=== PATIENT | male | born 1945 | race Asian ===

== ENCOUNTER → 2023-12-26 | Outpatient (CLI) | payer OTHER, SELFPAY ==
[2023-12-26 11:07] LABS: Collection Type, Urine Clean Catch; Squamous Epithelial Cell,Urine 0 /hpf (0-5)
[2023-12-26 11:33] LABS: Basophils # (Auto) 0.1 Thou/mm3 (0.0-0.2); Basophils % (Auto) 1 % (0-2.5); Eosinophils # (Auto) 0.3 Thou/mm3 (0.0-0.5); Eosinophils % (Auto) 4 % (0-10); Hematocrit 38.8 % (41.0-53.0); Hemoglobin 13.1 g/dL (13.5-16.0); Immature Granulocytes % (Auto) 0 % (0-0); Immature Granulocytes Auto 0.01 Thou/mm3 (0.00-0.00); Lymphocytes # (Auto) 1.8 Thou/mm3 (1.0-4.8); Lymphocytes % (Auto) 30 % (10-50); Mean Corpuscular HGB Conc 33.8 g/dl (31.0-37.0); Mean Corpuscular Hemoglobin 31.7 pg (25.0-35.0); Mean Corpuscular Volume 94 fL (80-100); Monocytes # (Auto) 0.5 Thou/mm3 (0.0-0.8); Monocytes % (Auto) 8 % (0-12); Neutrophils # (Auto) 3.3 Thou/mm3 (1.8-7.7); Neutrophils % (Auto) 56 % (37-80); Nucleated Red Blood Cell % 0 /100 WBC (0); Platelet Count 251 Thou/mm3 (140-440); RDW Standard Deviation 43.9 fL (35.1-43.9); Red Blood Count 4.13 Miln/mm3 (4.50-5.90); White Blood Count 5.8 Thou/mm3 (3.8-10.6)
[2023-12-26 11:40] LABS: Bilirubin,Urine Negative (Negative); Blood,Urine Negative (Negative); Clarity,Urine Clear (Clear/Hazy); Color,Urine Yellow (Lt Yel-Yel); Glucose, Urine Negative (Negative); Ketones,Urine Negative (Negative); Leukocyte Esterase,Urine Negative (Negative); Nitrite,Urine Negative (Negative); Protein,Urine Trace (Neg - Trace); RBC,Urine 2 /hpf (0-3); Urobilinogen,Urine Negative mg/dL (0.0-1.0); WBC,Urine 1 /hpf (0-5)
[2023-12-26 11:43] LABS: Creatinine MALB Rnd Ur 157 mg/dL (30-125); Microalbumin Creat Ratio 2 mg/gCrea (<30); Microalbumin, Random Urine 3 mg/L (0-300)
[2023-12-26 11:43] LABS: Glucose Estimated Average 134 mg/dL (80-131); Hemoglobin A1C 6.3 % Hgb (4.8-6.0)
[2023-12-26 11:49] LABS: Alanine Aminotransferase 24 U/L (10-49); Albumin, Serum 4.6 gm/dL (3.4-4.8); Albumin/Globulin Ratio 1.6 (1.2-2.2); Alkaline Phosphatase 66 U/L (46-116); Anion Gap 4 (7-16); Aspartate Amino Transferase 28 U/L (0-34); BUN/Creatinine Ratio 16 Ratio (12-20); Bilirubin,Total 1.2 mg/dL (0.3-1.2); Blood Urea Nitrogen 18 mg/dL (9-23); Carbon Dioxide 28.2 mMol/L (20.0-31.0); Cardiac Risk Estimate 2.3 RATIO (4.0-6.7); Chloride 106 mMol/L (98-107); Cholesterol 118 mg/dL (132-200); Creatinine (Component) 1.1 mg/dL (0.6-1.3); Globulin 2.9 gm/dL (2.3-3.5); Glucose 127 mg/dL (74-106); HDL Cholesterol 52 mg/dL (40-60); LDL Cholesterol,Calculated 54 mg/dL (0-130); Osmolality,Calculated 279 (275-295); Potassium 4.2 mMol/L (3.4-5.1); Sodium 138 mMol/L (136-145); Total Protein 7.5 gm/dL (5.7-8.2); Triglycerides 59 mg/dL (30-150); eGFR > 60 See Note
== END | disposition home or self-care (01) ==
LOC: COPL 10:19
PROVIDERS: PCP Family Medicine; Referring Provider Family Medicine; Visit Provider Family Medicine
DX: Z00.00 Encounter for general adult medical examination without abnormal findings (principal); I10 Essential (primary) hypertension; E78.2 Mixed hyperlipidemia; E79.0 Hyperuricemia without signs of inflammatory arthritis and tophaceous disease
CPT/HCPCS: 36415; 80053; 80061; 81001; 82043; 82570; 83036; 84443; 85025

== ENCOUNTER → 2024-06-23 | Outpatient (CLI) | payer OTHER, SELFPAY ==
[2024-06-23 12:52] LABS: Collection Type, Urine Clean Catch; Squamous Epithelial Cell,Urine 0 /hpf (0-5)
[2024-06-23 13:17] LABS: Basophils # (Auto) 0.1 Thou/mm3 (0.0-0.2); Basophils % (Auto) 1 % (0-2.5); Eosinophils # (Auto) 0.4 Thou/mm3 (0.0-0.5); Eosinophils % (Auto) 6 % (0-10); Hematocrit 37.8 % (41.0-53.0); Immature Granulocytes % (Auto) 0 % (0-0); Immature Granulocytes Auto 0.01 Thou/mm3 (0.00-0.00); Lymphocytes % (Auto) 31 % (10-50); Mean Corpuscular HGB Conc 34.4 g/dl (31.0-37.0); Mean Corpuscular Hemoglobin 32.6 pg (25.0-35.0); Mean Corpuscular Volume 95 fL (80-100); Monocytes # (Auto) 0.6 Thou/mm3 (0.0-0.8); Monocytes % (Auto) 8 % (0-12); Neutrophils # (Auto) 3.6 Thou/mm3 (1.8-7.7); Neutrophils % (Auto) 54 % (37-80); Nucleated Red Blood Cell % 0 /100 WBC (0); Platelet Count 220 Thou/mm3 (140-440); RDW Standard Deviation 45.2 fL (35.1-43.9); Red Blood Count 3.99 Miln/mm3 (4.50-5.90); White Blood Count 6.7 Thou/mm3 (3.8-10.6)
[2024-06-23 13:19] LABS: Bilirubin,Urine Negative (Negative); Blood,Urine Negative (Negative); Clarity,Urine Clear (Clear/Hazy); Color,Urine Lt-Yellow (Lt Yel-Yel); Glucose, Urine Negative (Negative); Ketones,Urine Negative (Negative); Leukocyte Esterase,Urine Negative (Negative); Nitrite,Urine Negative (Negative); Protein,Urine Negative (Neg - Trace); RBC,Urine < 1 /hpf (0-3); Specific Gravity,Urine 1.014 (1.001-1.035); Urobilinogen,Urine Negative mg/dL (0.0-1.0); WBC,Urine 1 /hpf (0-5)
[2024-06-23 13:27] LABS: Alanine Aminotransferase 18 U/L (10-49); Albumin, Serum 4.6 gm/dL (3.4-4.8); Albumin/Globulin Ratio 1.5 (1.2-2.2); Alkaline Phosphatase 59 U/L (46-116); Anion Gap 5 (7-16); Aspartate Amino Transferase 24 U/L (0-34); BUN/Creatinine Ratio 19 Ratio (12-20); Bilirubin,Total 1.2 mg/dL (0.3-1.2); Blood Urea Nitrogen 19 mg/dL (9-23); Calcium 9.7 mg/dL (8.3-10.6); Calcium (Corrected) 9.7 mg/dL (8.5-10.1); Carbon Dioxide 26.9 mMol/L (20.0-31.0); Chloride 105 mMol/L (98-107); Globulin 3.1 gm/dL (2.3-3.5); Glucose 134 mg/dL (74-106); Osmolality,Calculated 278 (275-295); Potassium 3.9 mMol/L (3.4-5.1); Sodium 137 mMol/L (136-145); Thyroid Stimulating Hormone 3.87 uIU/mL (0.55-4.78); Total Protein 7.7 gm/dL (5.7-8.2); eGFR > 60 See Note
[2024-06-23 13:49] LABS: Creatinine MALB Rnd Ur 59 mg/dL (30-125); Microalbumin, Random Urine < 3 mg/L (0-300)
[2024-06-23 15:56] LABS: Glucose Estimated Average 143 mg/dL (80-131); Hemoglobin A1C 6.6 % Hgb (4.8-6.0)
[2024-06-23 16:16] LABS: Cardiac Risk Estimate 2.2 RATIO (4.0-6.7); Cholesterol 112 mg/dL (132-200); HDL Cholesterol 51 mg/dL (40-60); LDL Cholesterol,Calculated 46 mg/dL (0-130); Triglycerides 75 mg/dL (30-150)
== END | disposition home or self-care (01) ==
LOC: COPL 12:04
PROVIDERS: PCP Family Medicine; Referring Provider Family Medicine; Visit Provider Family Medicine
DX: Z00.00 Encounter for general adult medical examination without abnormal findings (principal); E11.42 Type 2 diabetes mellitus with diabetic polyneuropathy; E78.2 Mixed hyperlipidemia; I10 Essential (primary) hypertension
CPT/HCPCS: 36415; 80053; 80061; 81001; 82043; 82570; 83036; 84443; 85025

== ENCOUNTER 2024-11-27 18:00 | Emergency (ER) | payer OTHER, SELFPAY ==
[2024-11-27 18:40] VITALS: BP 138/74; PULSE 73; RESP 16; TEMP 36.8; O2SAT 96; BMI 25.8
--- NOTE | 2024-11-27 18:50 | XR_ITS ---
EXAMINATION: AP lateral soft tissue neck 2 views TECHNIQUE: AP and lateral soft tissue neck 2 views Date and time: November 27, 2024, 1859 hours INDICATIONS: Patient states foreign body stuck in the throat. FINDINGS: Normal epiglottis. No opaque foreign body seen. Advanced degenerative disc disease C4-C5, C5-C6 with prominent cervical spondylosis Heavy soft tissue carotid vascular calcification IMPRESSION: No opaque foreign body seen
--- NOTE | 2024-11-27 18:57 | PD.EDNV ---
Nausea/Vomit./Diarrhea-RME/HPI General Chief complaint: Dental/Oral/Throat Stated complaint: STICKY RICE CAUGHT IN THROAT Time Seen by Provider: 11/27/24 18:49 Arrival date/time: 11/27/24 18:00 79M with history of HTN and DM presents to ED with food bolus (sticky rice) stuck in throat for several hours. Patient is unable to pass water/fluids. This has been happening more recently, but patient has always been able to pass the food. Limitations: no limitations Related Data Home Medications ?Medication ?Instructions ?Recorded ?Confirmed glimepiride 2 mg tablet (Amaryl) 2 mg PO QDAY #0 tabs 09/27/13 09/05/18 lisinopril 2.5 mg tablet 2.5 mg PO QDAY ##0 09/27/13 09/05/18 metformin 500 mg tablet 500 mg PO BID ##0 09/27/13 09/05/18 simvastatin 10 mg tablet 10 mg PO HS ##0 09/27/13 09/05/18 lysine 1,000 mg tablet 1,000 mg PO QDAY #0 tabs 10/12/15 09/05/18 omega 1-pja-vyn-fish oil 1,000 mg 1 cap PO QDAY #0 caps 10/12/15 09/05/18 (120 mg-180 mg) capsule (Fish Oil) aspirin 81 mg chewable tablet 81 mg PO QDAY 09/05/18 09/05/18 cholecalciferol (vitamin D3) 25 1,000 unit PO QDAY 09/05/18 09/05/18 mcg (1,000 unit) tablet (Vitamin D3) insulin glargine 100 unit/mL (3 20 unit subcut HS 09/05/18 09/05/18 mL) subcutaneous pen (Lantus Solostar U-100 Insulin) multivitamin 1 tab PO QDAY 09/05/18 09/05/18 Allergies Allergy/AdvReac Type Severity Reaction Status Date / Time No Known Allergies Allergy Verified 11/27/24 18:03 Review of Systems Review of Systems Systems Reviewed: All systems reviewed, normal except as documented ENT Ears, Nose, Mouth, and Throat: Reports as per HPI and Reports other (food stuck in throat) Past Medical History Past Medical History NEUROLOGIC: Negative Seizures CARDIAC: Positive Hypercholesterolemia and Hypertension; Negative Congestive Heart Failure RESPIRATORY: Positive Pneumonia; Negative Chronic Obstructive Pulmonary Disease (COPD) GENITOURINARY: Negative Renal Disease ENDOCRINE: Positive Diabetes Mellitus Type 2; Negative Diabetes Mellitus Type 1 OTHER HISTORY: Negative Blood Transfusions, Blood Transfusion Reaction or Anesthesia Reactions Social History SMOKING STATUS: Former smoker ED Exam General Limitations: Present no limitations General appearance: Present alert and in no apparent distress Head Head exam: Present atraumatic ENT ENT exam: Present normal exam, normal oropharynx and mucous membranes moist Neck Neck exam: Present normal inspection, full ROM and trachea midline Chest Chest inspection: Present normal inspection and symmetric chest wall rise Neurological Exam Neurological exam: Present alert and oriented X3 Psychiatric Psychiatric exam: Present normal affect and normal mood Skin Skin exam: Present warm, dry, intact and normal color Course Quality Measures none Orders Category Date Time Status Blood glucose [Bedside Blood Glucose] NOW Care 11/27/24 18:49 Active XR soft tissue neck Stat Exams 11/27/24 18:50 Completed Glucagon Inj Med 11/27/24 18:49 Discontinued 1 mg IM X1 ONE Metoclopramide Inj [Reglan Inj] Med 11/27/24 18:49 Discontinued 10 mg IM X1 ONE Vital Signs Vital signs: Vital Signs Temperature 98.3 F 11/27/24 18:40 Pulse Rate 73 11/27/24 18:40 Respiratory Rate 16 11/27/24 18:40 Blood Pressure 138/74 H 11/27/24 18:40 Pulse Oximetry (%) 96 11/27/24 18:40 Oxygen Delivery Method Room Air 11/27/24 18:40 O2 at 96% on RA and WNLs Nausea/Vomiting/Diarrhea MDM Narrative MDM Narrative:: 79M with history of HTN and DM presents to ED with food bolus (sticky rice) stuck in throat for several hours. Patient is unable to pass water/fluids. This has been happening more recently, but patient has always been able to pass the food. Physical exam reveals normal speech and WOB. Patient is afebrile, calm, and alert. Initial PO challenge failed. XR no opaque FB. After meds, PO challenge passed. Patient data External records reviewed:: [facility] previous records Clinical information provided by:: patient Social determinants that could affect healthcare access:: none Patient has the following chronic illnesses:: DM and HTN How is presenting disease/condition affected by chronic disease/condition?: exacerbated by Evaluation data The following diagnostics were reviewed and interpreted by me:: radiology exam(s) Lab and/or radiology exams considered but not ordered:: ordered Interpretation Summary: above Medications / Prescriptions Medications / Prescriptions considered but not ordered:: ordered Medication administrations:: Medication Administration History Discontinued Medications Glucagon (Glucagon Inj 1 Mg Vial) 1 mg IM X1 ONE Stop: 11/27/24 18:50 Last Admin: 11/27/24 19:27 Dose: 1 mg Documented By: BD Metoclopramide HCl (Metoclopramide Inj 5 Mg/Ml Vial 2 Ml) 10 mg IM X1 ONE; Protocol Stop: 11/27/24 18:50 Last Admin: 11/27/24 19:27 Dose: 10 mg Documented By: BD above Consultations Consultation(s) initiated? (list below): No Diagnosis Nausea Differential Diagnosis: traveler's diarrhea, food poisoning, gastroenteritis, clostridium difficile infection, drug-induced nausea and vomiting, dehydration and other (food bolus in esophagus) Most likely diagnosis given after review of the tests above:: food in esophagus Admission Indicated Admission indicated?: not indicated Admission Request Was there a request for admission?: No Disposition Plan Disposition Plan: Discharge Discharge Attestation Discharge Attestation: The patient and all family members were given an opportunity to ask questions and understood the discharge instructions. Discharge instructions specifically effects, indications for sooner follow up or return to the emergency department, and the expected course of current diagnosis. Patient condition: Stable Discharge Plan Plan Patient Disposition: HOME (Self Care) Discharge Disposition comment: Stable Prescriptions/Referrals Prescriptions/Med Rec: No Action metformin 500 mg Tablet 500 mg PO BID Qty: 0 simvastatin 10 MG tablet 10 mg PO HS Qty: 0 glimepiride [Amaryl] 2 MG tablet 2 mg PO QDAY Qty: 0 lisinopril 2.5 MG tablet 2.5 mg PO QDAY Qty: 0 lysine 1,000 MG tablet 1,000 mg PO QDAY Qty: 0 omega 9-lmk-yjq-fish oil [Fish Oil] 1,000 mg (120 mg-180 mg) Capsule 1 cap PO QDAY Qty: 0 multivitamin Tablet 1 tab PO QDAY aspirin 81 mg Tablet,Chewable 81 mg PO QDAY cholecalciferol (vitamin D3) [Vitamin D3] 1,000 unit Tablet 1,000 unit PO QDAY Lantus Solostar U-100 Insulin 100 unit/mL (3 mL) Insulin Pen 20 unit SUBCUT HS Referrals: Jhon Yarbrough MD [Primary Care Provider, Family Practice] - In 1 week Problem List Clinical Impression: Food impaction of esophagus Patient/Caregiver Discharge Instructions Education Materials: ED Foreign Body Esophageal Rslv Additional Instructions: Please follow-up with PCP within 24-48 hours and return immediately if symptoms worsen. See PCP for referral to GI for EGD. Print Language: Marshallese Stand Alone Forms: Patient Portal Info Letter PA/[employer]URITY PROJECT MANAGER Supervising Physician PA/ROSALES Supervising Physician: Dr. Luna
[2024-11-27] MEDS: GLUCAGON INJ 1 MG VIAL IM (19:27)
[2024-11-27] MEDS: METOCLOPRAMIDE INJ 5 MG/ML VIAL 2 ML 10 MG IM (19:27)
== END 2024-11-27 21:21 | disposition home or self-care (01) ==
PROVIDERS: Emergency Provider Emergency Medicine; PCP Family Medicine
DX: T18.128A Food in esophagus causing other injury, initial encounter (principal); E11.9 Type 2 diabetes mellitus without complications; I10 Essential (primary) hypertension; W44.F3XA Food entering into or through a natural orifice, initial encounter; Z79.84 Long term (current) use of oral hypoglycemic drugs
CPT/HCPCS: 70360; 99284; J1611; J2765

== ENCOUNTER → 2025-01-25 | Outpatient (CLI) | payer OTHER, SELFPAY ==
--- NOTE | 2025-01-25 13:40 | XR_ITS ---
Examination: Bone densitometry Date and time of exam: January 25, 2025, 1407 hours INDICATIONS: 79-year-old male with diagnosis age-related osteoporosis, diabetic Technique: Lumbar spine and hip total bone mineralization values of an calculated. Peak reference and age match control results have been displayed. Findings: Lumbar spine total bone mineralization is 1.246 gm/cm2. This is 1.4 standard deviations above peak reference. This is 2.6 standard deviations above age-matched controls. Hip total bone mineralization is 0.977 gm/cm2 This is 0.4 standard deviations below peak reference. This is 0.7 standard deviations above age-matched controls Impression: There is normal mineralization based on lumbar spine measurements. There is normal mineralization based on hip measurements Lumbar mineralization is increased 4.9% compared with October 15, 2017 Hip mineralization is decreased 4.0% compared with October 15, 2017
== END | disposition home or self-care (01) ==
LOC: CDIM 13:20
PROVIDERS: Referring Provider Family Medicine; Visit Provider Family Medicine
DX: M85.89 Other specified disorders of bone density and structure, multiple sites (principal)
CPT/HCPCS: 77080

== ENCOUNTER → 2025-02-02 | Outpatient (CLI) | payer OTHER, SELFPAY ==
[2025-02-02 10:46] LABS: Glucose Estimated Average 154 mg/dL (80-131); Hemoglobin A1C 7.0 % Hgb (4.8-6.0)
[2025-02-02 10:58] LABS: Alanine Aminotransferase 22 U/L (10-49); Albumin, Serum 4.6 gm/dL (3.4-4.8); Albumin/Globulin Ratio 1.4 (1.2-2.2); Alkaline Phosphatase 75 U/L (46-116); Anion Gap 9 (7-16); Aspartate Amino Transferase 24 U/L (0-34); BUN/Creatinine Ratio 12 Ratio (12-20); Bilirubin,Total 0.8 mg/dL (0.3-1.2); Blood Urea Nitrogen 13 mg/dL (9-23); Calcium 9.6 mg/dL (8.3-10.6); Calcium (Corrected) 9.6 mg/dL (8.5-10.1); Carbon Dioxide 28.6 mMol/L (20.0-31.0); Cardiac Risk Estimate 2.4 RATIO (4.0-6.7); Chloride 105 mMol/L (98-107); Cholesterol 125 mg/dL (132-200); Creatinine (Component) 1.1 mg/dL (0.6-1.3); Globulin 3.3 gm/dL (2.3-3.5); Glucose 145 mg/dL (74-106); HDL Cholesterol 53 mg/dL (40-60); LDL Cholesterol,Calculated 55 mg/dL (0-130); Osmolality,Calculated 288 (275-295); Potassium 4.2 mMol/L (3.4-5.1); Sodium 143 mMol/L (136-145); Total Protein 7.9 gm/dL (5.7-8.2); Triglycerides 87 mg/dL (30-150); eGFR > 60 See Note
== END | disposition home or self-care (01) ==
PROVIDERS: PCP Family Medicine; Referring Provider Family Medicine; Visit Provider Family Medicine
DX: E11.69 Type 2 diabetes mellitus with other specified complication (principal); E78.2 Mixed hyperlipidemia; I10 Essential (primary) hypertension
CPT/HCPCS: 36415; 80053; 80061; 83036